=== PATIENT | female | born 1985 | race Caucasian/White ===

== ENCOUNTER 2017-10-06 20:04 | Emergency (ER) | payer OTHER ==
--- NOTE | 2017-10-06 20:17 | EDM.PDOC ---
ED HPI GENERAL MEDICAL PROBLEM - General Chief Complaint: Abdominal Pain Stated Complaint: RIGHT SIDE PAIN Time Seen by Provider: 10/06/17 20:14 Source of Information: Reports: Patient History Limitations: Reports: No Limitations - History of Present Illness INITIAL COMMENTS - FREE TEXT/NARRATIVE: 32-year-old female presents the ED with fairly acute onset of right maeve- abdominal pain that awoke from sleep yesterday morning. Since that time the pain is increased in intensity in the right hemiabdomen particularly the right lower quadrant. It's painful to walk sit and to pass her water. Is also worsened after she used a Fleet enema to get her bowels working. She feels warm and flushed started about 1730 hrs. tonight. She's been eating regularly normally up until that time. Mild intermittent nausea with no vomiting. Also been sluggish for the last several days. She did have a small bowel movement normally yesterday. Prone to constipation. No previous abdominal surgery. She has an IUD in place and is therefore highly unlikely to be . She describes urinary tract symptoms about 4 days ago with some dysuria urgency and she has increased her fluid intake to improve this. Has never had polynephritis in the past. Pain is constant with a mild colicky component. Does radiate up into her right flank. Onset: Sudden Onset Date: 10/05/17 (Pain awoke from sleep during the night yesterday.) Onset Time: 04:00 Duration: Hour(s): Location: Reports: Abdomen (Pain was right lower quadrant but now is more diffusely across the abdomen) Quality: Reports: Ache, Other Severity: Moderate (Pain is constant with a mild colicky component rates the pain as 6-7 out of 10.) Improves with: Reports: Rest Worsens with: Reports: Movement (Sitting standing walking coughing and urinating seem to make the pain worse. Pain is also worsened after taking a Fleet enema to get her bowels moving tonight.) Context: Denies: Activity, Exercise, Lifting, Sick Contact, Trauma, Other Associated Symptoms: Reports: Nausea/Vomiting (Intermittent nausea but no vomiting.), Other (Feels warm to palpation. Initial temperature recorded by nursing staff is 36.7 but the patient does indeed feel warm to palpation.). Denies: Loss of Appetite, Malaise, Shortness of Breath, Syncope Treatments TRICOT KNITTER: Reports: Other (see below) (None.) Right Flank Pain Score (Numeric/FACES): 7 - Related Data Allergies Allergy/AdvReac Type Severity Reaction Status Date / Time No Known Allergies Allergy Verified 10/06/17 20:12 Home Meds: Home Meds Levofloxacin [Levaquin] 500 mg PO Q24H #9 tablet 10/06/17 [Rx] Rivaroxaban [Xarelto] 20 mg PO DAILY 10/06/17 [History] Past Medical History Hematologic History: Reports: Other (See Below) Other Hematologic History: DVT - Past Surgical History GI Surgical History: Reports: Other (See Below) Other GI Surgeries/Procedures: lipsuction Social & Family History - Tobacco Use Smoking Status *Q: Current Every Day Smoker Years of Tobacco use: 10 Packs/Tins Daily: 0.5 - Recreational Drug Use Recreational Drug Use: No - Living Situation & Occupation Living situation: Reports: Occupation: Employed ED ROS GENERAL - Review of Systems Review Of Systems: See Below Constitutional: Reports: Fever, Malaise, Decreased Appetite (During the last 2 hours.). Denies: Chills, Weakness, Fatigue, Weight Loss HEENT: Reports: No Symptoms Respiratory: Denies: Shortness of Breath, Wheezing, Pleuritic Chest Pain, Cough , Sputum, Hemoptysis Cardiovascular: Reports: No Symptoms Endocrine: Reports: No Symptoms GI/Abdominal: Reports: Abdominal Pain, Constipation, Nausea. Denies: Anorexia ( See history of present illness), Black Stool, Bloody Stool, Diarrhea, Decreased Appetite, Difficulty Swallowing, Distension, Flatus, Hematemesis, Hematochezia, Melena, Mucous in Stool, Vomiting (Mild), Other : Reports: Dysuria, Flank Pain (More noticeable 34 days ago better with increased fluid intake.), Frequency ( On the right side), Pain (Has terminal dysuria clinically.). Denies: Hematuria, Incontinence, Irregular Menses, Urgency, Urinary Retention Musculoskeletal: Reports: No Symptoms Skin: Reports: No Symptoms, Other Psychiatric: Reports: No Symptoms Hematologic/Lymphatic: Reports: No Symptoms ED EXAM, GI/ABD - Physical Exam Exam: See Below Exam Limited By: No Limitations General Appearance: Alert, WD/WN, No Apparent Distress, Other (Appears flushed and is warm to palpation. Definitely has a fever.) Eyes: Bilateral: Normal Appearance Respiratory/Chest: No Respiratory Distress, Lungs Clear, Normal Breath Sounds, No Accessory Muscle Use Cardiovascular: Normal Peripheral Pulses, No Edema, No Gallop, No Murmur GI/Abdominal Exam: Normal Bowel Sounds, Soft, Non-Tender, No Organomegaly, No Distention, No Abnormal Bruit, No Mass, Pelvis Stable Back Exam: No: CVA Tenderness (L), CVA Tenderness (R), Decreased Range of Motion (Mild.), Muscle Spasm, Paraspinal Tenderness, Vertebral Tenderness Extremities: Normal Inspection, Normal Range of Motion, Non-Tender, No Pedal Edema, Normal Capillary Refill Neurological: Alert, Oriented, CN II-XII Intact, Normal Cognition, Normal Gait Psychiatric: Normal Affect, Normal Mood Skin Exam: Warm, Dry, Intact, Normal Color, No Rash Course - Vital Signs Last Recorded V/S: Last Vital Signs Temp 37.7 C 10/06/17 21:42 Pulse 92 10/06/17 20:09 Resp 16 10/06/17 20:09 BP 142/91 H 10/06/17 20:09 Pulse Ox 97 10/06/17 20:09 - Orders/Labs/Meds Orders: Active Orders 24 hr Category Date Time Status Abdomen 1V Flat [CR] Stat Exams 10/06/17 20:24 Taken CULTURE URINE [RM] Stat Lab 10/06/17 20:15 Received Labs: Laboratory Tests 10/06/17 10/06/17 10/06/17 Range/Units 20:15 20:15 20:35 WBC 12.24 H (3.98-10.04) K/mm3 RBC 4.52 (3.98-5.22) M/mm3 Hgb 13.6 (11.2-15.7) gm/L Hct 40.1 (34.1-44.9) % MCV 88.7 (79.4-94.8) fl MCH 30.1 (25.6-32.2) pg MCHC 33.9 (32.2-35.5) g/dl RDW Std Deviation 45.2 (36.4-46.3) fL Plt Count 228 (182-369) K/mm3 MPV 11.3 (9.4-12.3) fl Neutrophils % (Manual) 82 H (40-60) % Band Neutrophils % 0 (0-10) % Lymphocytes % (Manual) 11 L (20-40) % Atypical Lymphs % 0 % Monocytes % (Manual) 5 (2-10) % Eosinophils % (Manual) 1 (0.7-5.8) % Basophils % (Manual) 0 L (0.1-1.2) Myelocytes % 1 Platelet Estimate Adequate Plt Morphology Comment Normal RBC Morph Comment Normal Sodium (136-145) mEq/L Potassium (3.5-5.1) mEq/L Chloride (98-107) mEq/L Carbon Dioxide (21-32) mEq/L Anion Gap (5-15) BUN (7-18) mg/dL Creatinine (0.55-1.02) mg/dL Est Cr Clr Drug Dosing mL/min Estimated GFR (MDRD) (>60) mL/min BUN/Creatinine Ratio (14-18) Glucose (74-106) mg/dL Calcium (8.5-10.1) mg/dL Total Bilirubin (0.2-1.0) mg/dL AST (15-37) U/L ALT (14-59) U/L Alkaline Phosphatase (46-116) U/L C-Reactive Protein (<1.0) mg/dL Total Protein (6.4-8.2) g/dl Albumin (3.4-5.0) g/dl Globulin gm/dL Albumin/Globulin Ratio (1-2) Urine Color Yellow (Yellow) Urine Appearance Clear (Clear) Urine pH 7.0 (5.0-8.0) Ur Specific Dwarf 1.020 (1.005-1.030) Urine Protein Negative (Negative) Urine Glucose (UA) Negative (Negative) Urine Ketones Negative (Negative) Urine Occult Blood 2+ H (Negative) Urine Nitrite Negative (Negative) Urine Bilirubin Negative (Negative) Urine Urobilinogen 0.2 (0.2-1.0) Ur Leukocyte Esterase 1+ H (Negative) Urine RBC 20-30 H (0-5) /hpf Urine WBC 5-10 H (0-5) /hpf Ur Epithelial Cells 5-10 H (0-5) /hpf Urine Bacteria Few (FEW) /hpf Urine Mucus Not seen (FEW) /hpf Urine HCG, Qual Negative (NEGATIVE) 10/06/17 Range/Units 20:35 WBC (3.98-10.04) K/mm3 RBC (3.98-5.22) M/mm3 Hgb (11.2-15.7) gm/L Hct (34.1-44.9) % MCV (79.4-94.8) fl MCH (25.6-32.2) pg MCHC (32.2-35.5) g/dl RDW Std Deviation (36.4-46.3) fL Plt Count (182-369) K/mm3 MPV (9.4-12.3) fl Neutrophils % (Manual) (40-60) % Band Neutrophils % (0-10) % Lymphocytes % (Manual) (20-40) % Atypical Lymphs % % Monocytes % (Manual) (2-10) % Eosinophils % (Manual) (0.7-5.8) % Basophils % (Manual) (0.1-1.2) Myelocytes % Platelet Estimate Plt Morphology Comment RBC Morph Comment Sodium 138 (136-145) mEq/L Potassium 3.7 (3.5-5.1) mEq/L Chloride 102 (98-107) mEq/L Carbon Dioxide 24 (21-32) mEq/L Anion Gap 15.7 H (5-15) BUN 16 (7-18) mg/dL Creatinine 1.0 (0.55-1.02) mg/dL Est Cr Clr Drug Dosing 79.99 mL/min Estimated GFR (MDRD) > 60 (>60) mL/min BUN/Creatinine Ratio 16.0 (14-18) Glucose 104 (74-106) mg/dL Calcium 9.3 (8.5-10.1) mg/dL Total Bilirubin 0.7 (0.2-1.0) mg/dL AST 19 (15-37) U/L ALT 25 (14-59) U/L Alkaline Phosphatase 57 (46-116) U/L C-Reactive Protein 0.6 (<1.0) mg/dL Total Protein 7.5 (6.4-8.2) g/dl Albumin 3.9 (3.4-5.0) g/dl Globulin 3.6 gm/dL Albumin/Globulin Ratio 1.1 (1-2) Urine Color (Yellow) Urine Appearance (Clear) Urine pH (5.0-8.0) Ur Specific Dwarf (1.005-1.030) Urine Protein (Negative) Urine Glucose (UA) (Negative) Urine Ketones (Negative) Urine Occult Blood (Negative) Urine Nitrite (Negative) Urine Bilirubin (Negative) Urine Urobilinogen (0.2-1.0) Ur Leukocyte Esterase (Negative) Urine RBC (0-5) /hpf Urine WBC (0-5) /hpf Ur Epithelial Cells (0-5) /hpf Urine Bacteria (FEW) /hpf Urine Mucus (FEW) /hpf Urine HCG, Qual (NEGATIVE) Meds: Medications Discontinued Medications Generic Name Dose Route Start Last Admin Trade Name Omar PRN Reason Stop Dose Admin Acetaminophen 975 mg 10/06/17 21:33 10/06/17 21:42 Tylenol PO 10/06/17 21:34 975 mg NOW ONE Administration Ceftriaxone Sodium 2 gm 10/06/17 21:45 Rocephin IVPUSH Q24H KARSON Hydromorphone HCl 0.5 mg 10/06/17 20:25 10/06/17 20:36 Dilaudid IVPUSH 10/06/17 20:26 0.5 mg ONETIME ONE Administration Sodium Chloride 1,000 mls @ 150 mls/hr 10/06/17 20:30 10/06/17 20:38 Normal Saline IV 150 mls/hr ASDIRECTED KARSON Administration Ceftriaxone Sodium 2 gm/ 100 mls @ 200 mls/hr 10/06/17 21:36 10/06/17 21:41 Sodium Chloride IV 10/06/17 22:05 200 mls/hr ONETIME STA Administration Levofloxacin 500 mg 10/06/17 21:33 10/06/17 21:42 Levaquin PO 10/06/17 21:34 500 mg ONETIME ONE Administration Magnesium Citrate 210 ml 10/06/17 21:37 10/06/17 22:15 Citrate Of Magnesia PO 10/06/17 21:38 210 ml ONETIME ONE Administration Metoclopramide HCl 7.5 mg 10/06/17 20:23 10/06/17 20:35 Reglan IVPUSH 10/06/17 20:24 7.5 mg ONETIME ONE Administration - Radiology Interpretation Free Text/Narrative:: 32-year-old female presents to the ED with. Acute onset of right maeve-abdominal pain night before last that awoke her from sleep. You're early yesterday morning. Pain has persisted however since it started 24 hours ago. Associated intermittent nausea tonight and feeling of being warm to notifying chills or rigors. She describes her dysuria urgency and frequency 3-4 days ago which she felt was improved after taking increased fluids. Currently pain is right hemiabdomen particularly right lower quadrant with walking coughing sitting or voiding. Also pain was worsened after she gave herself an enema tonight thinking she might be constipated. Examination reveals no guarding and increased bowel sounds throughout the abdomen. She is tender in the right lower quadrant and suprapubically. Patient is currently Xarelto for DVT plan 1 view abdomen to be done. Routine labs and urinalysis to be collected. Will give her Reglan 7.5 mg IV and Dilaudid 0.5 mg IV for pain relief. - Re-Assessments/Exams Free Text/Narrative Re-Assessment/Exam: 10/06/17 20:37 urinalysis is back and it reveals 2+ blood. 1+ leukocyte esterase. There is 10-20 WBCs per power field and 20-30 RBCs per high-power field raising the suspicion of possible renal lithiasis. She may have hemorrhagic cystitis as well since she is on Xarelto. . Urine culture ordered. 10/06/17 21:00: KUB reveals increased stool throughout the entire right hemicolon and part of the descending colon. Minimal amount of stool in the rectal vault. IUD in the pelvis in the appropriate position. Ends of bowel obstruction. No signs of an obvious renal lithiasis problem. Labs are pending. 10/06/17 21:26 Labs reveal an elevated white count at 12.24. The years a mild left shift with 82% neutrophils no bands. Hemoglobin is 13.6 hematocrit is 40.1. Pellets are normal at 220,000. Chemistry shows a sodium of 138 potassium of 3.7. Chloride 102 bicarbonate 24. And a gap is mildly elevated at 15.7. BUNs 16 creatinine is 1.0. EGFR is greater than 60. Glucose is 104 calcium 9.3 liver function normal. C-reactive protein is 0.6. On reexamination she again has benign abdomen. There is no signs of peritoneal irritation at this time. I'm going to give her initial dose of and about acute Rocephin 2 g IV. Also initial dose of Levaquin 500 mg by mouth and this will be continued as an outpatient 500 mg once daily for another 9 days to clear up urinary tract infection. We'll also send her home with Citroma --7 ounces by mouth mixed with 5 ounces of juice once to provide bowel cleanse of the right hemicolon constipation. She is currently febrile I will give her Tylenol 975 mg per ora for fever relief. She reports pain is prolonged gone completely after the IV analgesia. 10/06/17 22:15: Patient is completed her IV antibiotic therapy. She will be discharged to home on Levaquin 500 mg once daily for the next 9 days. Tylenol as needed for fever relief. To return to the ED if right lower quadrant pain is not markedly improved within the next 12-24 hours or worsens in the next 12 hours. Departure - Departure Time of Disposition: 22:15 Disposition: Home, Self-Care 01 Condition: Fair Clinical Impression: Pyelonephritis, Constipation by delayed colonic transit Abdominal pain Qualifiers: Abdominal location: lower abdomen, unspecified Qualified Code(s): R10.30 - Lower abdominal pain, unspecified - Discharge Information Prescriptions: Levofloxacin [Levaquin] 500 mg PO Q24H #9 tablet Instructions: Pyelonephritis, Adult, [id number], Constipation, Adult, Abdominal Pain, Adult, [id number] Referrals: PCP,Not In Area [Primary Care Provider] - Forms: ED Department Discharge Additional Instructions: Evaluation in the emergency room tonight in regards to development of diffuse abdominal pain primarily right sided abdominal pain for the last 24 hours. This was preceded by some evidence of urinary tract infection with some burning on voiding that cleared with increased fluid intake. Department of acute febrile illness over the last 3-4 hours. She was 101.6 in the ED. Urinalysis proved to be positive for infection with slightly more red cells than normal but I think this may be because you on Xarelto. The x-ray of the abdomen showed increased stool throughout the right hemicolon parts of the left descending colon as well. Examination again did not show any signs of peritonitis or appendicitis at this time. Treatment was started in the ED with Rocephin 2 g IV for kidney infection. Also Levaquin 500 mg by mouth. This will need to be continued by mouth daily for another 9 days with the next tablet due at suppertime tomorrow. Also bowel cleanse needs to be carried out and I would suggest using Citroma which I will sent home with you. 7 ounces mixed with 5 ounces of juice of choice by mouth once in the morning. This will usually start work in 1-2 hours and provide bowel cleanse with 2-4 bowel movements usually in the next 4 hours. Return to the ED if right lower quadrant abdominal pain increases or is not improved after bowel cleanse. Continue Tylenol 650 mg every 4 hours as needed for fever relief. - My Orders Last 24 Hours: My Active Orders 10/06/17 20:15 CULTURE URINE [RM] Stat 10/06/17 20:24 Abdomen 1V Flat [CR] Stat - Assessment/Plan Last 24 Hours: My Active Orders 10/06/17 20:15 CULTURE URINE [RM] Stat 10/06/17 20:24 Abdomen 1V Flat [CR] Stat
[2017-10-06] MEDS ORDERED: Metoclopramide 10 MG/2 ML SDV IVPUSH ONE (20:23)
[2017-10-06] MEDS ORDERED: HYDROmorphone 0.5 MG/0.5 ML Syringe IVPUSH ONE (20:25)
[2017-10-06] MEDS ORDERED: Sodium Chloride 0.9% 1,000 ML IV SCH (20:30)
[2017-10-06] MEDS ORDERED: Levofloxacin 250 MG Tab PO ONE (21:33)
[2017-10-06] MEDS ORDERED: Acetaminophen 325 MG Tab PO ONE (21:33)
[2017-10-06] MEDS ORDERED: cefTRIAXone 2 GM in Sodium Chloride 0.9% 100 ML IV STA (21:36)
[2017-10-06] MEDS ORDERED: Magnesium Citrate Solution 296 ML Bottle PO ONE (21:37)
[2017-10-06] MEDS ORDERED: cefTRIAXone 2 GM Vial IVPUSH SCH (21:45)
--- NOTE | 2017-10-08 11:40 | CR ---
Abdomen: Supine view of the abdomen was obtained. Comparison: No prior study. Bowel gas pattern appears within normal limits. IUD is present within the pelvis. No abnormal calcifications or soft tissue abnormality is seen. Bony structures are unremarkable. Impression: 1. Normal-appearing supine abdominal x-ray with IUD. Diagnostic code #2
== END 2017-10-06 22:18 | disposition home or self-care (01) ==
LOC: JD.ED 20:04
DX: N12 Tubulo-interstitial nephritis, not specified as acute or chronic (principal); K59.01 Slow transit constipation; F17.210 Nicotine dependence, cigarettes, uncomplicated; Z79.899 Other long term (current) drug therapy
CPT/HCPCS: 36415; 74000; 80053; 81001; 81025; 85025; 86140; 87086; 87088; 87186; 96361; 96365; 96375; 99284; A9270; J0696; J1170; J2765; J7030; J7040